=== PATIENT | female | born 1960 | race Hispanic/Latino ===

== ENCOUNTER 2017-07-15 04:27 | Emergency (ER) | payer MEDICARE ==
[2017-07-15 04:49] LABS: APPEARANCE,URINE Cloudy (CLEAR); BILIRUBIN,URINE Negative (NEGATIVE); COLOR,URINE Yellow (YELLOW); GLUCOSE, URINE (UA) TRACE mg/dL (NEGATIVE); KETONES,URINE Negative (NEGATIVE); LEUKOCYTE ESTERASE ,URINE Trace (NEGATIVE); NITRATE,URINE Negative (NEGATIVE); OCCULT BLOOD,URINE Large (NEGATIVE); PROTEIN,URINE POS 1+ (NEGATIVE)
[2017-07-15] MEDS ORDERED: KETOROLAC TROMETHAMINE 30MG/ML ONE (04:59)
[2017-07-15 05:16] LABS: BASOPHILS % (AUTO) 0.3 % (0.0-5.0); EOSINOPHILS % (AUTO) 0.7 % (0.0-8.0); HEMATOCRIT 34.4 % (36-48); LYMPHOCYTES % (AUTO) 20.3 % (21.0-51.0); MEAN CORPUSCULAR HEMOGLOBIN 30.2 pg (27.0-33.0); MEAN CORPUSCULAR HGB CONC 33.9 g/dL (32.0-36.0); MEAN CORPUSCULAR VOLUME 89.1 fL (79-99); MONOCYTES % (AUTO) 4.8 % (3.0-13.0); NEUTROPHILS % (AUTO) 73.9 % (40.0-77.0); PLATELET COUNT (AUTO) 358 K/uL (130-400); RED BLOOD CELL COUNT(AUTO) 3.86 MIL/uL (4.00-5.50); RED CELL DISTRIBUTION WIDTH 12.9 % (11.0-15.5); WHITE BLOOD COUNT (AUTO) 10.2 K/uL (4.8-10.8)
[2017-07-15 05:26] LABS: CREATININE 0.9 mg/dL (0.5-1.5); POTASSIUM 3.7 mmol/L (3.5-5.1)
[2017-07-15 05:30] LABS: ALBUMIN 3.5 g/dL (3.5-5.0); BILIRUBIN,TOTAL 0.4 mg/dL (0.2-1.0); TOTAL PROTEIN, SERUM 7.8 g/dL (6.0-8.3)
[2017-07-15 05:41] LABS: BACTERIA,URINE Few /HPF (None Seen); URIC ACID CRYSTALS,URINE Few /LPF (None Seen)
[2017-07-15] MEDS ORDERED: SODIUM CHLORIDE 0.9% 1000ML 1,000 ML IV ONE (06:06)
[2017-07-15] MEDS ORDERED: ONDANSETRON HCL 4 MG/2 ML VIAL ONE (06:06)
[2017-07-15] MEDS ORDERED: TRAMADOL HCL 50 MG TABLET ONE (06:48)
== END 2017-07-15 07:39 | disposition home or self-care (01) ==
LOC: EDH 04:27
DX: N21.1 Calculus in urethra (principal); N13.30 Unspecified hydronephrosis; E11.9 Type 2 diabetes mellitus without complications; E78.5 Hyperlipidemia, unspecified; I10 Essential (primary) hypertension; R19.7 Diarrhea, unspecified
CPT/HCPCS: 36415; 71045; 74176; 80053; 81001; 82150; 83690; 85025; 96361; 96374; 96375; 99285; J1885; J2405; J7030

== ENCOUNTER → 2022-06-21 | Outpatient (CLI) | payer MEDICARE ==
[~2022-06-21] MED LIST: BRIM5DRO OU; DORZ10DR10 OU; DORZ10DR9 OU; GLIP5TAB11 PO; LATA2.5D14 OU; LOSA50TA2 PO; METF-446 PO; METO75TA PO; PRAV20TA4 PO; REGADENOSON 0.4 MG/5 ML PF SYG IVP ONE; REGADENOSON 0.4 MG/5 ML PF SYG IVP SCH
== END | disposition home or self-care (01) ==
LOC: SHCH 08:17
PROVIDERS: ATTEND Internal Medicine Cardiovascular Disease
DX: I20.9 Angina pectoris, unspecified (principal); R07.9 Chest pain, unspecified; R06.09 Other forms of dyspnea
CPT/HCPCS: 78452; 96374; 93017; J2785; A9500 ×2

== ENCOUNTER → 2022-09-20 | Outpatient (CLI) | payer MEDICARE ==
[~2022-09-20] MED LIST changes: -REGADENOSON 0.4 MG/5 ML PF SYG IVP ONE; -REGADENOSON 0.4 MG/5 ML PF SYG IVP SCH
== END | disposition home or self-care (01) ==
LOC: SHCH 10:12
PROVIDERS: ATTEND Internal Medicine Cardiovascular Disease
DX: I87.2 Venous insufficiency (chronic) (peripheral) (principal)
CPT/HCPCS: 93970

== ENCOUNTER → 2023-05-09 | Outpatient (CLI) | payer MEDICARE ==
[~2023-05-09] MED LIST changes: +APIX5TAB PO; +CEPH500B PO; +COMB5OS OD; +DEXA4 PO; +DORZ10DR10 OP; +DOXY100C5 PO; -GLIP5TAB11 PO; +GLIP5TAB15 PO; +HYDR50CA50 PO; +LATA2.5D14 OP; +LOSA-418 PO; -LOSA50TA2 PO; +LOSA50TA64 PO; +METO-296 PO; +METO50TA18 PO; +PANT40TA54 PO; +TAMS-1 PO
== END | disposition home or self-care (01) ==
LOC: RAH 06:27
PROVIDERS: ATTEND Internal Medicine Gastroenterology
DX: R11.0 Nausea (principal); R14.0 Abdominal distension (gaseous); R10.13 Epigastric pain
CPT/HCPCS: 78264; A9541

== ENCOUNTER → 2023-05-23 | Outpatient (CLI) | payer OTHER, MEDICARE ==
[2023-05-23 12:01] LABS: ALBUMIN 3.8 g/dL (3.5-5.0); BILIRUBIN,TOTAL 2.2 mg/dL (0.2-1.0); CREATININE 1.8 mg/dL (0.5-1.5); POTASSIUM 4.3 mmol/L (3.5-5.1); TOTAL PROTEIN, SERUM 7.1 g/dL (6.0-8.3)
[2023-05-23 22:47] LABS: HEPATITIS A IGM ANTIBODY Non-Reactive (Nonreactive); HEPATITIS B CORE IGM ANTIBODY Non-Reactive (Negative); HEPATITIS B SURFACE ANTIGEN Non-Reactive (Nonreactive); HEPATITIS C ANTIBODY Non-Reactive (Nonreactive)
== END | disposition home or self-care (01) ==
LOC: LAB 10:34
PROVIDERS: ATTEND Internal Medicine Gastroenterology
DX: R94.5 Abnormal results of liver function studies (principal); R10.30 Lower abdominal pain, unspecified; R10.13 Epigastric pain; R11.0 Nausea; R14.0 Abdominal distension (gaseous)
CPT/HCPCS: 36415; 80053; 80074

== ENCOUNTER → 2023-05-26 | Outpatient (CLI) | payer MEDICARE ==
[~2023-05-26] MED LIST changes: +IOHEXOL-350 75 ML VIAL IV ONE
== END | disposition home or self-care (01) ==
LOC: RAH 07:42
PROVIDERS: ATTEND Internal Medicine Gastroenterology
DX: K80.20 Calculus of gallbladder without cholecystitis without obstruction (principal); R10.13 Epigastric pain; R10.30 Lower abdominal pain, unspecified; R11.0 Nausea; R14.0 Abdominal distension (gaseous); Z98.890 Other specified postprocedural states
CPT/HCPCS: 74178; Q9967

== ENCOUNTER 2023-06-28 18:15 | Emergency (ER) | payer OTHER, MEDICARE ==
[~2023-06-28] VITALS: Ht 152.4 cm; Wt 56.2 kg
[~2023-06-28 18:15] MED LIST changes: -IOHEXOL-350 75 ML VIAL IV ONE
[2023-06-28 20:32] LABS: SARS-CoV-2, RNA, NAAT NEGATIVE SARS CoV-2 (NEGATIVE)
[2023-06-28 20:35] LABS: INFLUENZA TYPE A Negative For Type A (NEGATIVE); INFLUENZA TYPE B Negative For Type B (NEGATIVE)
[2023-06-28 20:50] LABS: RAPID GROUP A STREP positive (NEGATIVE)
[2023-06-28 21:03] LABS: APPEARANCE,URINE CLOUDY (CLEAR); BILIRUBIN,URINE 0.5 mg/dL (NEGATIVE); COLOR,URINE YELLOW (YELLOW); GLUCOSE, URINE (UA) NEGATIVE (NEGATIVE); KETONES,URINE 5 mg/dL (NEGATIVE); LEUKOCYTE ESTERASE ,URINE 25 Leu/uL (NEGATIVE); NITRATE,URINE NEGATIVE (NEGATIVE); OCCULT BLOOD,URINE NEGATIVE (NEGATIVE); PH,URINE 5.5 (5.0-8.0); PROTEIN,URINE 30 mg/dL (NEGATIVE)
[2023-06-28 21:10] LABS: ADD UA MICROSCOPIC YES
[2023-06-28 21:12] LABS: MUCUS,URINE RARE LPF (None Seen); SQUAMOUS EPITHELIAL CELL,UR RARE /HPF (0-2); URIC ACID CRYSTALS,URINE RARE /LPF (None Seen)
[2023-06-28] MEDS ORDERED: AMOX1TAB16 PO (21:27)
[2023-06-28 21:37] VITALS: BP 110/72; PULSE 100; RESP 18; O2SAT 99
== END 2023-06-28 21:43 | disposition home or self-care (01) ==
LOC: EDH 18:15
DX: J02.0 Streptococcal pharyngitis (principal); N39.0 Urinary tract infection, site not specified; I10 Essential (primary) hypertension; E11.9 Type 2 diabetes mellitus without complications; E78.00 Pure hypercholesterolemia, unspecified; I48.91 Unspecified atrial fibrillation; Z79.01 Long term (current) use of anticoagulants; Z79.52 Long term (current) use of systemic steroids; Z79.84 Long term (current) use of oral hypoglycemic drugs; Z79.899 Other long term (current) drug therapy; Z90.49 Acquired absence of other specified parts of digestive tract; Z20.822 Contact with and (suspected) exposure to COVID-19
CPT/HCPCS: 99284; 71045; 87635; 87880; 87804 ×2; 81001; C9803

== ENCOUNTER → 2023-07-12 | Outpatient (CLI) | payer MEDICARE, OTHER ==
[~2023-07-12] MED LIST changes: +AMOX1TAB16 PO
== END | disposition home or self-care (01) ==
LOC: RAH 10:35
PROVIDERS: ATTEND Internal Medicine Gastroenterology
DX: K80.20 Calculus of gallbladder without cholecystitis without obstruction (principal); Z90.49 Acquired absence of other specified parts of digestive tract
CPT/HCPCS: 78226; A9537